=== PATIENT | female | born 1980 | race Caucasian/White ===

== ENCOUNTER 2020-03-29 15:44 | Emergency (ER) | payer OTHER ==
[~2020-03-29] VITALS: Wt 54.4 kg
[~2020-03-29 15:44] MED LIST: CIPRO500 MG PO; FLAGYL500 MG PO
[2020-03-29] MEDS ORDERED: CLEOCIN HCL300 MG PO (16:28)
== END 2020-03-29 16:39 | disposition home or self-care (01) ==
LOC: ED 15:44
DX: L02.224 Furuncle of groin (principal); Z96.22 Myringotomy tube(s) status